=== PATIENT | female | born 1940 | race Caucasian/White ===

== ENCOUNTER 2022-06-07 19:15 | Inpatient (IN) | payer MEDICARE ==
[~2022-06-07] VITALS: Ht 154.9 cm; Wt 49.9 kg
[2022-06-07] MEDS ORDERED: ACETAMINOPHEN 325 MG TAB PO ONE (19:30)
[2022-06-07] MEDS ORDERED: SODIUM CHLORIDE 0.9% 1000ML 1,000 ML IV ONE (19:30)
[2022-06-07 20:55] LABS: BASOPHILS % 0.2 % (0.0-1.0); HEMATOCRIT 47.1 % (34.2-44.1); HEMOGLOBIN 14.6 g/dL (12.0-16.0); LYMPHOCYTES # (AUTO) 0.4 (1.0-3.2); LYMPHOCYTES % 2.3 % (18.0-39.1); MEAN CORPUSCULAR HEMOGLOBIN 30.5 pg (28-32); MEAN CORPUSCULAR VOLUME 98.3 fL (81-99); MONOCYTES # (AUTO) 1.6 (0.2-0.8); MONOCYTES % 9.4 % (4.4-11.3); NEUTROPHILS % 87.4 % (38.7-80.0); PLATELET COUNT 127 x10e3/uL (140-360); RED BLOOD COUNT 4.79 x10e6/uL (3.6-5.1); RED CELL DISTRIBUTION WIDTH 13.7 % (11.7-14.4)
[2022-06-07 21:02] LABS: CLARITY,URINE CLOUDY (CLEAR); COLOR,URINE YELLOW (YELLOW); KETONES,URINE 2+ (NEGATIVE); LEUKOCYTE ESTERASE ,URINE LARGE (NEGATIVE); NITRITE,URINE POSITIVE (NEGATIVE); PROTEIN,URINE DIPSTICK >=300 (NEGATIVE); URINE UROBILINOGEN 0.2 mg/dL (0.2 - 1)
[2022-06-07 21:11] LABS: BACTERIA,URINE MODERATE /HPF; WBC,URINE (MAN) 21-50 /HPF (0-5)
[2022-06-07 21:14] LABS: ALBUMIN 2.9 g/dL (3.5-5.0); ALBUMIN/GLOBULIN RATIO 0.7 (0.8-2.0); ANION GAP 17.7 mmol/L (8-16); CALCIUM 11.9 mg/dL (8.4-10.2); CREATININE, SERUM 0.84 mg/dL (0.57-1.11); POTASSIUM 3.7 mmol/L (3.5-5.1)
[2022-06-07 21:21] LABS: CREATINE KINASE MB 7.7 ng/mL (0-5.0)
[2022-06-07] MEDS ORDERED: ONDANSETRON HCL INJ 2MG/ML 2ML 2 MG/ML VIAL IV PRN (22:15)
[2022-06-08] VITALS (9 sets, daily range): BP systolic 124–144; BP diastolic 50–72
[2022-06-08] MEDS: CIPROFLOXACIN 400 MG/D5W 200ML 200 ML IV SCH ×3 (01:36→20:46)
[2022-06-08] MEDS: SODIUM CHLORIDE 0.9% 1000ML 1,000 ML IV SCH ×4 (01:36→22:45)
[2022-06-08] MEDS ORDERED: PREDNISONE5 MG PO (01:41)
[2022-06-08 06:25] LABS: BASOPHILS % 0.1 % (0.0-1.0); HEMATOCRIT 41.1 % (34.2-44.1); HEMOGLOBIN 12.5 g/dL (12.0-16.0); LYMPHOCYTES # (AUTO) 0.7 (1.0-3.2); MEAN CORPUSCULAR HEMOGLOBIN 30.3 pg (28-32); MEAN CORPUSCULAR HGB CONC 30.4 g/dL (31-35); MEAN CORPUSCULAR VOLUME 99.8 fL (81-99); MONOCYTES # (AUTO) 1.6 (0.2-0.8); MONOCYTES % 9.8 % (4.4-11.3); NEUTROPHILS # (AUTO) 14.3 (2.1-6.9); NEUTROPHILS % 85.4 % (38.7-80.0); PLATELET COUNT 109 x10e3/uL (140-360); RED BLOOD COUNT 4.12 x10e6/uL (3.6-5.1)
[2022-06-08 06:42] LABS: ALBUMIN 2.3 g/dL (3.5-5.0); ALBUMIN/GLOBULIN RATIO 0.7 (0.8-2.0); ANION GAP 14.5 mmol/L (8-16); CALCIUM 10.9 mg/dL (8.4-10.2); CREATININE, SERUM 0.78 mg/dL (0.57-1.11); POTASSIUM 3.5 mmol/L (3.5-5.1)
[2022-06-08 07:04] LABS: CREATINE KINASE MB 4.6 ng/mL (0-5.0)
[2022-06-08 08:50] LABS: BAND NEUTROPHILS % (MANUAL) 2 %; LYMPHOCYTES % (MANUAL) 1 % (19-48); MONOCYTES % (MANUAL) 7 % (3.4-9.0); NEUTROPHILS % (MANUAL) 90 % (40-74)
[2022-06-08 08:51] LABS: PLATELET ESTIMATE SLIGHTLY DECREASED; PLATELET MORPHOLOGY COMMENT NORMAL; RBC MORPHOLOGY COMMENT NORMAL
[2022-06-08] MEDS ORDERED: [UNRECOGNIZED DRUG - REMARK] (16:36)
[2022-06-09] VITALS (7 sets, daily range): BP systolic 128–162; BP diastolic 60–72
[2022-06-09] MEDS: SODIUM CHLORIDE 0.9% 1000ML 1,000 ML IV SCH ×3 (05:11→21:11)
[2022-06-09 06:07] LABS: ANION GAP 12.9 mmol/L (8-16); CALCIUM 10.9 mg/dL (8.4-10.2); CREATININE, SERUM 0.69 mg/dL (0.57-1.11); POTASSIUM 3.9 mmol/L (3.5-5.1)
[2022-06-09 06:31] LABS: BASOPHILS % 0.2 % (0.0-1.0); HEMATOCRIT 39.4 % (34.2-44.1); HEMOGLOBIN 12.5 g/dL (12.0-16.0); LYMPHOCYTES # (AUTO) 0.4 (1.0-3.2); LYMPHOCYTES % 2.7 % (18.0-39.1); MEAN CORPUSCULAR HEMOGLOBIN 30.4 pg (28-32); MEAN CORPUSCULAR HGB CONC 31.7 g/dL (31-35); MEAN CORPUSCULAR VOLUME 95.9 fL (81-99); MONOCYTES # (AUTO) 1.8 (0.2-0.8); MONOCYTES % 10.9 % (4.4-11.3); NEUTROPHILS % 85.2 % (38.7-80.0); PLATELET COUNT 103 x10e3/uL (140-360); RED BLOOD COUNT 4.11 x10e6/uL (3.6-5.1); RED CELL DISTRIBUTION WIDTH 13.9 % (11.7-14.4)
[2022-06-09] MEDS: ESCITALOPRAM OXALATE 10 MG TAB PO SCH (09:29)
[2022-06-09] MEDS: LOSARTAN POTASSIUM 25 MG TAB PO SCH (09:29)
[2022-06-09] MEDS: CIPROFLOXACIN 400 MG/D5W 200ML 200 ML IV SCH ×2 (09:29→21:12)
[2022-06-10] VITALS (7 sets, daily range): BP systolic 158–194; BP diastolic 64–76
[2022-06-10] MEDS: SODIUM CHLORIDE 0.9% 1000ML 1,000 ML IV SCH ×4 (06:36→21:30)
[2022-06-10] MEDS: ESCITALOPRAM OXALATE 10 MG TAB PO SCH (08:18)
[2022-06-10] MEDS: LOSARTAN POTASSIUM 25 MG TAB PO SCH (08:18)
[2022-06-10] MEDS: CIPROFLOXACIN 400 MG/D5W 200ML 200 ML IV SCH ×2 (08:19→21:30)
[2022-06-10] MEDS ORDERED: LOSARTAN POTASSIUM 100 MG TAB PO ONE (12:00)
[2022-06-10] MEDS: ACETAMINOPHEN 325 MG TAB PO PRN (14:51)
[2022-06-10] MEDS: LOSARTAN POTASSIUM 100 MG TAB PO SCH (16:12)
[2022-06-11] VITALS (9 sets, daily range): BP systolic 132–193; BP diastolic 60–79
[2022-06-11 05:07] LABS: BASOPHILS % 0.3 % (0.0-1.0); EOSINOPHILS % 0.3 % (0.0-6.0); HEMATOCRIT 38.1 % (34.2-44.1); HEMOGLOBIN 12.8 g/dL (12.0-16.0); LYMPHOCYTES # (AUTO) 0.8 (1.0-3.2); LYMPHOCYTES % 6.9 % (18.0-39.1); MEAN CORPUSCULAR HEMOGLOBIN 30.3 pg (28-32); MEAN CORPUSCULAR HGB CONC 33.6 g/dL (31-35); MEAN CORPUSCULAR VOLUME 90.3 fL (81-99); MONOCYTES % 9.1 % (4.4-11.3); NEUTROPHILS # (AUTO) 9.4 (2.1-6.9); NEUTROPHILS % 81.9 % (38.7-80.0); PLATELET COUNT 105 x10e3/uL (140-360); RED BLOOD COUNT 4.22 x10e6/uL (3.6-5.1); RED CELL DISTRIBUTION WIDTH 14.4 % (11.7-14.4)
[2022-06-11 05:33] LABS: ALBUMIN 1.7 g/dL (3.5-5.0); ALBUMIN/GLOBULIN RATIO 0.5 (0.8-2.0); ANION GAP 11.7 mmol/L (8-16); CREATININE, SERUM 0.59 mg/dL (0.57-1.11); POTASSIUM 3.7 mmol/L (3.5-5.1)
[2022-06-11] MEDS: SODIUM CHLORIDE 0.9% 1000ML 1,000 ML IV SCH (06:09)
[2022-06-11] MEDS: ESCITALOPRAM OXALATE 10 MG TAB PO SCH (08:43)
[2022-06-11] MEDS: LOSARTAN POTASSIUM 100 MG TAB PO SCH (08:44)
[2022-06-11] MEDS: CIPROFLOXACIN 400 MG/D5W 200ML 200 ML IV SCH ×2 (08:44→20:13)
[2022-06-11] MEDS ORDERED: FUROSEMIDE INJ 10 MG/ML 4 ML VIAL IV ONE (12:00)
[2022-06-11] MEDS ORDERED: METOPROLOL TART25 MG PO (12:04)
[2022-06-11] MEDS ORDERED: FOLIC ACID0.4 MG PO (12:04)
[2022-06-11] MEDS ORDERED: SIMVASTATIN20 MG PO (12:04)
[2022-06-11] MEDS ORDERED: DIOVAN160 MG PO (12:20)
[2022-06-11] MEDS ORDERED: NIFEDIPINE ER30 M1 PO (12:20)
[2022-06-11] MEDS ORDERED: ASPIRIN81 MG PO (12:20)
[2022-06-11] MEDS ORDERED: FUROSEMIDE40 MG PO (12:20)
[2022-06-11] MEDS: ACETAMINOPHEN 325 MG TAB PO PRN ×2 (13:40→23:40)
[2022-06-11] MEDS: METOPROLOL TARTRATE 25 MG TAB PO SCH (17:00)
[2022-06-11] MEDS: NIFEDIPINE CR 30 MG TAB PO SCH (17:00)
[2022-06-11] MEDS: VALSARTAN 160 MG TAB PO SCH (17:24)
[2022-06-11] MEDS: SIMVASTATIN 20 MG TAB PO SCH (20:13)
[2022-06-12] VITALS (7 sets, daily range): BP systolic 132–153; BP diastolic 60–77
[2022-06-12 04:58] LABS: BASOPHILS # (AUTO) 0.1 (0.0-0.1); BASOPHILS % 0.5 % (0.0-1.0); EOSINOPHILS # (AUTO) 0.1 (0.0-0.4); EOSINOPHILS % 0.6 % (0.0-6.0); HEMATOCRIT 39.2 % (34.2-44.1); HEMOGLOBIN 13.4 g/dL (12.0-16.0); LYMPHOCYTES # (AUTO) 1.3 (1.0-3.2); MEAN CORPUSCULAR HEMOGLOBIN 30.5 pg (28-32); MEAN CORPUSCULAR HGB CONC 34.2 g/dL (31-35); MEAN CORPUSCULAR VOLUME 89.3 fL (81-99); MONOCYTES # (AUTO) 1.1 (0.2-0.8); MONOCYTES % 11.4 % (4.4-11.3); NEUTROPHILS % 71.4 % (38.7-80.0); PLATELET COUNT 139 x10e3/uL (140-360); RED BLOOD COUNT 4.39 x10e6/uL (3.6-5.1); RED CELL DISTRIBUTION WIDTH 14.2 % (11.7-14.4)
[2022-06-12 05:18] LABS: ALBUMIN 1.9 g/dL (3.5-5.0); ALBUMIN/GLOBULIN RATIO 0.5 (0.8-2.0); ANION GAP 12.9 mmol/L (8-16); CALCIUM 10.6 mg/dL (8.4-10.2); CREATININE, SERUM 0.61 mg/dL (0.57-1.11)
[2022-06-12 05:19] LABS: POTASSIUM 2.9 mmol/L (3.5-5.1)
[2022-06-12] MEDS ORDERED: POTASSIUM CHLORIDE 10MEQ EA PO ONE ×2 (08:00→10:00)
[2022-06-12] MEDS: CIPROFLOXACIN 400 MG/D5W 200ML 200 ML IV SCH ×2 (08:39→21:00)
[2022-06-12] MEDS: ASPIRIN 81 MG CHEW TAB PO SCH (08:39)
[2022-06-12] MEDS: VALSARTAN 160 MG TAB PO SCH ×2 (08:39→17:00)
[2022-06-12] MEDS: ESCITALOPRAM OXALATE 10 MG TAB PO SCH (08:40)
[2022-06-12] MEDS: NIFEDIPINE CR 30 MG TAB PO SCH ×2 (08:41→17:24)
[2022-06-12] MEDS: METOPROLOL TARTRATE 25 MG TAB PO SCH ×2 (08:42→17:25)
[2022-06-12] MEDS: FUROSEMIDE 40 MG TAB PO SCH (08:46)
[2022-06-12] MEDS: SIMVASTATIN 20 MG TAB PO SCH (21:01)
[2022-06-13] VITALS (8 sets, daily range): BP systolic 132–162; BP diastolic 64–70
[2022-06-13] MEDS: CIPROFLOXACIN 400 MG/D5W 200ML 200 ML IV SCH ×2 (09:41→20:45)
[2022-06-13] MEDS: VALSARTAN 160 MG TAB PO SCH ×2 (09:42→17:22)
[2022-06-13] MEDS: ASPIRIN 81 MG CHEW TAB PO SCH (09:42)
[2022-06-13] MEDS: ESCITALOPRAM OXALATE 10 MG TAB PO SCH (09:42)
[2022-06-13] MEDS: NIFEDIPINE CR 30 MG TAB PO SCH ×2 (09:42→17:21)
[2022-06-13] MEDS: METOPROLOL TARTRATE 25 MG TAB PO SCH ×2 (09:43→17:22)
[2022-06-13] MEDS: FUROSEMIDE 40 MG TAB PO SCH (09:44)
[2022-06-13] MEDS ORDERED: ONDANSETRON HCL 4 MG ORAL DISINTEGRATING TAB PO PRN (11:45)
[2022-06-13 14:33] LABS: BASOPHILS # (AUTO) 0.1 (0.0-0.1); BASOPHILS % 0.6 % (0.0-1.0); EOSINOPHILS # (AUTO) 0.1 (0.0-0.4); EOSINOPHILS % 0.5 % (0.0-6.0); LYMPHOCYTES # (AUTO) 1.7 (1.0-3.2); LYMPHOCYTES % 13.5 % (18.0-39.1); MEAN CORPUSCULAR HEMOGLOBIN 30.2 pg (28-32); MEAN CORPUSCULAR HGB CONC 33.3 g/dL (31-35); MEAN CORPUSCULAR VOLUME 90.7 fL (81-99); MONOCYTES # (AUTO) 1.1 (0.2-0.8); MONOCYTES % 8.5 % (4.4-11.3); NEUTROPHILS # (AUTO) 8.8 (2.1-6.9); NEUTROPHILS % 70.9 % (38.7-80.0); PLATELET COUNT 193 x10e3/uL (140-360); RED BLOOD COUNT 4.63 x10e6/uL (3.6-5.1); RED CELL DISTRIBUTION WIDTH 14.6 % (11.7-14.4)
[2022-06-13 14:51] LABS: ALBUMIN 2.1 g/dL (3.5-5.0); ALBUMIN/GLOBULIN RATIO 0.5 (0.8-2.0); ANION GAP 15.9 mmol/L (8-16); CALCIUM 11.4 mg/dL (8.4-10.2); CREATININE, SERUM 0.71 mg/dL (0.57-1.11)
[2022-06-13 14:53] LABS: POTASSIUM 3.9 mmol/L (3.5-5.1)
[2022-06-13 17:38] LABS: EOSINOPHILS % (MANUAL) 1 % (0-7); LYMPHOCYTES % (MANUAL) 8 % (19-48); MONOCYTES % (MANUAL) 14 % (3.4-9.0); NEUTROPHILS % (MANUAL) 77 % (40-74); PLATELET ESTIMATE ADEQUATE; PLATELET MORPHOLOGY COMMENT NORMAL; RBC MORPHOLOGY COMMENT NORMAL
[2022-06-13] MEDS: SIMVASTATIN 20 MG TAB PO SCH (20:45)
[2022-06-14] VITALS: BP 154/62
[2022-06-14 04:00] VITALS: BP 138/65
[2022-06-14 05:58] LABS: BASOPHILS # (AUTO) 0.1 (0.0-0.1); BASOPHILS % 0.6 % (0.0-1.0); EOSINOPHILS # (AUTO) 0.1 (0.0-0.4); EOSINOPHILS % 0.8 % (0.0-6.0); HEMATOCRIT 44.1 % (34.2-44.1); HEMOGLOBIN 13.8 g/dL (12.0-16.0); LYMPHOCYTES # (AUTO) 1.8 (1.0-3.2); LYMPHOCYTES % 13.2 % (18.0-39.1); MEAN CORPUSCULAR HEMOGLOBIN 29.9 pg (28-32); MEAN CORPUSCULAR HGB CONC 31.3 g/dL (31-35); MONOCYTES # (AUTO) 1.1 (0.2-0.8); MONOCYTES % 7.6 % (4.4-11.3); NEUTROPHILS # (AUTO) 9.8 (2.1-6.9); NEUTROPHILS % 70.7 % (38.7-80.0); PLATELET COUNT 213 x10e3/uL (140-360); RED BLOOD COUNT 4.62 x10e6/uL (3.6-5.1); RED CELL DISTRIBUTION WIDTH 14.6 % (11.7-14.4)
[2022-06-14 06:08] LABS: MEAN CORPUSCULAR VOLUME 95.5 fL (81-99)
[2022-06-14 06:21] LABS: ALBUMIN 2.1 g/dL (3.5-5.0); ALBUMIN/GLOBULIN RATIO 0.5 (0.8-2.0); ANION GAP 13.7 mmol/L (8-16); CALCIUM 11.3 mg/dL (8.4-10.2); CREATININE, SERUM 0.67 mg/dL (0.57-1.11); POTASSIUM 3.7 mmol/L (3.5-5.1)
[2022-06-14 08:33] VITALS: BP 137/55
[2022-06-14] MEDS: METOPROLOL TARTRATE 25 MG TAB PO SCH (09:13)
[2022-06-14] MEDS: ESCITALOPRAM OXALATE 10 MG TAB PO SCH (09:13)
[2022-06-14] MEDS: ASPIRIN 81 MG CHEW TAB PO SCH (09:13)
[2022-06-14] MEDS: VALSARTAN 160 MG TAB PO SCH (09:13)
[2022-06-14] MEDS: NIFEDIPINE CR 30 MG TAB PO SCH (09:14)
[2022-06-14] MEDS: FUROSEMIDE 40 MG TAB PO SCH (09:15)
[2022-06-14] MEDS: CIPROFLOXACIN 400 MG/D5W 200ML 200 ML IV SCH (09:16)
[2022-06-14 12:01] VITALS: BP 138/70
== END 2022-06-14 14:42 | DRG 871 ==
LOC: ER 19:54 → ERHOLD 22:09 → MED/SURG2 23:45 → OBSVTOIN 06-08 10:10
PROVIDERS: ADMIT Internal Medicine; ATTEND Internal Medicine
PROC: 02HV33Z Insertion of Infusion Device into Superior Vena Cava, Percutaneous Approach (ICD-10-PCS; principal; 2022-06-10)
DX: A41.51 Sepsis due to Escherichia coli [E. coli] (principal); E43 Unspecified severe protein-calorie malnutrition; G93.41 Metabolic encephalopathy; R65.20 Severe sepsis without septic shock; I11.9 Hypertensive heart disease without heart failure; E83.52 Hypercalcemia; Z68.20 Body mass index [BMI] 20.0-20.9, adult; F32.9 Major depressive disorder, single episode, unspecified; E87.6 Hypokalemia; G31.84 Mild cognitive impairment of uncertain or unknown etiology
CPT/HCPCS: 36415; 36569; 70450; 71045; 80048; 80053; 81001; 82550; 82553; 82948; 83605; 83970; 84484; 85025; 87040; 87086; 87186; 93005; 99252; 99284; G0378; J0696; J1940; J7030

== ENCOUNTER 2022-08-29 16:44 | Inpatient (IN) | payer MEDICARE, OTHER ==
[~2022-08-29] VITALS: Ht 167.6 cm; Wt 49.9 kg
[~2022-08-29 16:44] MED LIST: ASPIRIN81 MG PO; DIOVAN160 MG PO; FOLIC ACID0.4 MG PO; FUROSEMIDE40 MG PO; METOPROLOL TART25 MG PO; NIFEDIPINE ER30 M1 PO; PREDNISONE5 MG PO; SIMVASTATIN20 MG PO; [UNRECOGNIZED DRUG - REMARK]
[2022-08-29 17:24] LABS: BASOPHILS % 0.4 % (0.0-1.0); EOSINOPHILS # (AUTO) 0.1 (0.0-0.4); EOSINOPHILS % 0.9 % (0.0-6.0); HEMATOCRIT 34.3 % (34.2-44.1); HEMOGLOBIN 11.3 g/dL (12.0-16.0); LYMPHOCYTES # (AUTO) 2.3 (1.0-3.2); LYMPHOCYTES % 23.5 % (18.0-39.1); MEAN CORPUSCULAR HEMOGLOBIN 30.1 pg (28-32); MEAN CORPUSCULAR HGB CONC 32.9 g/dL (31-35); MEAN CORPUSCULAR VOLUME 91.2 fL (81-99); MONOCYTES # (AUTO) 0.8 (0.2-0.8); MONOCYTES % 8.2 % (4.4-11.3); NEUTROPHILS # (AUTO) 6.4 (2.1-6.9); NEUTROPHILS % 66.4 % (38.7-80.0); PLATELET COUNT 258 x10e3/uL (140-360); RED BLOOD COUNT 3.76 x10e6/uL (3.6-5.1); RED CELL DISTRIBUTION WIDTH 14.4 % (11.7-14.4)
[2022-08-29 17:34] LABS: CLARITY,URINE HAZY (CLEAR); COLOR,URINE STRAW (YELLOW); KETONES,URINE NEGATIVE (NEGATIVE); LEUKOCYTE ESTERASE ,URINE LARGE (NEGATIVE); NITRITE,URINE NEGATIVE (NEGATIVE); PROTEIN,URINE DIPSTICK 2+ (NEGATIVE); URINE UROBILINOGEN 0.2 mg/dL (0.2 - 1)
[2022-08-29 17:36] LABS: ALANINE AMINOTRANSFERASE 7 IU/L (0-55); ALBUMIN 2.6 g/dL (3.5-5.0); ALBUMIN/GLOBULIN RATIO 0.8 (0.8-2.0); ALKALINE PHOSPHATASE 64 IU/L (40-150); ANION GAP 12.6 mmol/L (8-16); BLOOD UREA NITROGEN 14 mg/dL (7-26); BUN/CREATININE RATIO 16 (6-25); CALCIUM 9.8 mg/dL (8.4-10.2); CARBON DIOXIDE 26 mmol/L (22-29); CHLORIDE 104 mmol/L (98-107); CREATININE, SERUM 0.88 mg/dL (0.57-1.11); GLUCOSE 105 mg/dL (74-118); MAGNESIUM 1.7 MG/DL (1.3-2.1); SODIUM 140 mmol/L (136-145)
[2022-08-29 17:37] LABS: POTASSIUM 2.6 mmol/L (3.5-5.1)
[2022-08-29 17:43] LABS: BACTERIA,URINE MODERATE /HPF; RBC,URINE >50 /HPF (0-5)
[2022-08-29] MEDS ORDERED: POTASSIUM CHLORIDE 20 MEQ TAB CR PO ONE ×2 (18:00→23:00)
[2022-08-29] MEDS ORDERED: Vancomycin IV 1 GM in SODIUM CHLORIDE 0.9% 250ML 250 ML IV ONE (18:00)
[2022-08-29] MEDS: MEROPENEM 1 GM in SODIUM CHLORIDE 0.9% 100 ML IV SCH (18:14)
[2022-08-29] MEDS ORDERED: DEXTROSE 50% SYRINGE 50 ML IV PRN (19:00)
[2022-08-29] MEDS ORDERED: ONDANSETRON HCL INJ 2MG/ML 2ML 2 MG/ML VIAL IV PRN (19:00)
[2022-08-29] MEDS ORDERED: KCL 20MEQ/.9 SOD CHL 1,000 ML IV ONE (19:00)
[2022-08-29] MEDS: INSULIN LISPRO 100 UNIT/1 ML 3ML VIAL SQ SCH (20:50)
[2022-08-30] MEDS: MEROPENEM 1 GM in SODIUM CHLORIDE 0.9% 100 ML IV SCH ×2 (03:02→09:48)
[2022-08-30 05:42] LABS: BASOPHILS % 0.2 % (0.0-1.0); EOSINOPHILS # (AUTO) 0.2 (0.0-0.4); EOSINOPHILS % 1.8 % (0.0-6.0); HEMATOCRIT 30.9 % (34.2-44.1); HEMOGLOBIN 10.1 g/dL (12.0-16.0); LYMPHOCYTES # (AUTO) 1.9 (1.0-3.2); LYMPHOCYTES % 22.1 % (18.0-39.1); MEAN CORPUSCULAR HEMOGLOBIN 29.9 pg (28-32); MEAN CORPUSCULAR HGB CONC 32.7 g/dL (31-35); MEAN CORPUSCULAR VOLUME 91.4 fL (81-99); MONOCYTES # (AUTO) 0.7 (0.2-0.8); MONOCYTES % 8.8 % (4.4-11.3); NEUTROPHILS # (AUTO) 5.6 (2.1-6.9); NEUTROPHILS % 66.6 % (38.7-80.0); PLATELET COUNT 206 x10e3/uL (140-360); RED BLOOD COUNT 3.38 x10e6/uL (3.6-5.1); RED CELL DISTRIBUTION WIDTH 14.5 % (11.7-14.4)
[2022-08-30 05:56] LABS: ALBUMIN 2.2 g/dL (3.5-5.0); ALBUMIN/GLOBULIN RATIO 0.7 (0.8-2.0); ANION GAP 10.9 mmol/L (8-16); CALCIUM 8.8 mg/dL (8.4-10.2); CREATININE, SERUM 0.71 mg/dL (0.57-1.11); MAGNESIUM 1.6 MG/DL (1.3-2.1); POTASSIUM 3.9 mmol/L (3.5-5.1)
[2022-08-30] MEDS: INSULIN LISPRO 100 UNIT/1 ML 3ML VIAL SQ SCH (07:30)
== END 2022-08-30 11:11 | disposition home or self-care (01) | DRG 690 ==
LOC: ER 16:49 → ERHOLD 18:51
PROVIDERS: ADMIT Internal Medicine; ATTEND Internal Medicine
DX: N39.0 Urinary tract infection, site not specified (principal); I10 Essential (primary) hypertension; E11.9 Type 2 diabetes mellitus without complications; I48.91 Unspecified atrial fibrillation; F41.9 Anxiety disorder, unspecified; K21.9 Gastro-esophageal reflux disease without esophagitis; E78.5 Hyperlipidemia, unspecified; E87.6 Hypokalemia; Z96.643 Presence of artificial hip joint, bilateral; Z88.0 Allergy status to penicillin; Z20.822 Contact with and (suspected) exposure to COVID-19; Z79.82 Long term (current) use of aspirin
CPT/HCPCS: 0223U; 36415; 70450; 71045; 80053; 81001; 82948; 83735; 84484; 85025; 87086; 93005; 99285; J2185; J7050